=== PATIENT | male | born 1995 | race American Indian/Alaskan Native ===

== ENCOUNTER 2017-08-29 01:44 | Emergency (ER) | payer BC ==
[2017-08-29 05:15] VITALS: BP 111/53
[2017-08-29] MEDS ORDERED: MOTRIN PO ONE ×2 (05:18→05:21)
--- NOTE | 2017-08-29 06:43 | XRay Report ---
FINAL REPORT PROCEDURE: XR SPINE LUMBOSACRAL 2-3V TECHNIQUE: Lumbar spine radiographs, frontal and lateral views. CPT 10447 HISTORY: Chronic Low Back Pain, 4 years COMPARISON: No prior studies are available for comparison. FINDINGS: Alignment: Normal . Vertebral body heights/Disk spaces: Normal . Fracture(s): None . Facets: Normal . Bone mineralization: Normal . IMPRESSION: Normal Examination
--- NOTE | 2017-08-29 06:52 | XRay Report ---
FINAL REPORT PROCEDURE: XR SPINE THORACIC 2V TECHNIQUE: Thoracic spine radiographs including AP, lateral, and Swimmer's views. CPT 81341 HISTORY: Chronic Mid Upper Back Pain, 4 years COMPARISON: No prior studies are available for comparison. FINDINGS: Alignment: Normal . Vertebral body height: Normal . Disk spaces: Normal . Fracture(s): None . Bone mineralization: Normal . IMPRESSION: Normal Examination.
--- NOTE | 2017-08-29 08:20 | Emergency Department Report ---
ED Back Pain/Injury HPI - General Chief Complaint: Back Pain/Injury Stated Complaint: BACK PAIN Source: patient Limitations: No Limitations - History of Present Illness Initial Comments: 22-year-old male comes in for complaint of back pain as located in thoracic and lumbar for 4 years. Patient reports that he sustained injury in the [employer]. He denies any recent traumas. He admits he has not taken any pain medicine for the pain. Patient denies any lower leg pain no numbness or tingling to his lower extremities he denies any blood in his urine denies any dysuria. MD Complaint: back pain -: year(s) (4) - Related Data Previous Rx's Medication Instructions Recorded Last Taken Type Ibuprofen 600 mg PO TID PRN 10 Days #30 08/29/17 Unknown Rx tablet Allergies Allergy/AdvReac Type Severity Reaction Status Date / Time No Known Allergies Allergy Unverified 08/29/17 05:15 ED Review of Systems ROS: Stated complaint: BACK PAIN Other details as noted in HPI Constitutional: denies: chills, fever Eyes: denies: eye pain, eye discharge, vision change ENT: denies: ear pain, throat pain Respiratory: denies: cough, shortness of breath, wheezing Cardiovascular: denies: chest pain, palpitations Endocrine: no symptoms reported Gastrointestinal: denies: abdominal pain, nausea, diarrhea Genitourinary: denies: dysuria, hematuria Musculoskeletal: back pain. denies: arthralgia Neurological: denies: headache, weakness, numbness, paresthesias, abnormal gait Psychiatric: denies: anxiety, depression Hematological/Lymphatic: denies: easy bleeding, easy bruising ED Past Medical Hx - Past Medical History Additional medical history: Chronic back pain - Surgical History Past Surgical History?: No - Social History Smoking Status: Current Every Day Smoker Substance Use Type: Marijuana - Medications Home Medications: Home Medications Medication Instructions Recorded Confirmed Last Taken Type Ibuprofen 600 mg PO TID PRN 10 Days #30 08/29/17 Unknown Rx tablet ED Physical Exam - General Limitations: No Limitations General appearance: alert, in no apparent distress - Head Head exam: Present: atraumatic, normocephalic - Eye Eye exam: Present: normal appearance - Cardiovascular Cardiovascular Exam: Present: bradycardia - GI/Abdominal GI/Abdominal exam: Present: soft. Absent: distended - Extremities Exam Extremities exam: Present: normal inspection, full ROM. Absent: tenderness, pedal edema, joint swelling - Back Exam Back exam: Present: normal inspection, full ROM. Absent: tenderness, CVA tenderness (R), muscle spasm, paraspinal tenderness, vertebral tenderness, rash noted - Expanded Back Exam Expanded Back exam: Negative Straight Leg Raising: Left, Right - Neurological Exam Neurological exam: Present: alert, oriented X3, normal gait - Psychiatric Psychiatric exam: Present: normal affect, normal mood - Skin Skin exam: Present: warm, dry, intact, normal color. Absent: rash ED Course Vital Signs 08/29/17 05:09 Temperature 97.5 F L Pulse Rate 53 L Respiratory 16 Rate Blood Pressure 111/53 O2 Sat by Pulse 100 Oximetry ED Medical Decision Making - Radiology Data Radiology results: report reviewed, image reviewed FINAL REPORT PROCEDURE: XR SPINE LUMBOSACRAL 2-3V TECHNIQUE: Lumbar spine radiographs, frontal and lateral views. CPT 41330 HISTORY: Chronic Low Back Pain, 4 years COMPARISON: No prior studies are available for comparison. FINDINGS: Alignment: Normal . Vertebral body heights/Disk spaces: Normal . Fracture(s): None . Facets: Normal . Bone mineralization: Normal . IMPRESSION: Normal Examination Transcribed By: CO Dictated By: ROXIE MCKAY MD Electronically Authenticated By: ROXIE MCKAY MD Signed Date/Time: 08/29/17239 DD/ 9 TD/TT: 08/29/17239 - Medical Decision Making Patient has been evaluated by this provider. Patient comes in for chronic back pain that's been going on for 4 years. Patient had not taking any pain medication he denies any recent traumas denies any numbness tingling no blood in the urine. Patient is nontoxic no acute distress. Discussed with patient he needs to follow up with the primary care provider or an orthopedist for management of his chronic pain. Patient verbalized understanding. Patient is requesting a work excuse. Critical care attestation.: If time is entered above; I have spent that time in minutes in the direct care of this critically ill patient, excluding procedure time. ED Disposition Clinical Impression: Chronic thoracic back pain Qualifiers: Back pain laterality: midline Qualified Code(s): M54.6 - Pain in thoracic spine ; G89.29 - Other chronic pain; G89.29 - Other chronic pain Disposition: TO HOME OR SELFCARE Is pt being admited?: No Does the pt Need Aspirin: No Condition: Stable Instructions: Chronic Back Pain (ED) Additional Instructions: Recommend to take the ibuprofen with food 3 times a day for pain I recommended to follow-up with primary care or orthopedics.. Prescriptions: Ibuprofen 600 mg PO TID PRN 10 Days #30 tablet PRN Reason: Pain Referrals: PRIMARY MD SHAWN [Primary Care Provider] - 3-5 Days CARROLL PARKER MD [Staff Physician] - 3-5 Days Forms: Work/School Release Form
== END 2017-08-29 08:42 | disposition home or self-care (01) ==
LOC: ED 01:44
DX: M54.6 Pain in thoracic spine (principal); M54.5 Low back pain; G89.29 Other chronic pain; F17.200 Nicotine dependence, unspecified, uncomplicated; F12.10 Cannabis abuse, uncomplicated
CPT/HCPCS: 72070; 72100; 99283